=== PATIENT | male | born 1955 | race Caucasian/White ===

== ENCOUNTER 2020-01-05 08:14 | Inpatient (IN) | payer OTHER ==
[2020-01-04 16:54] LABS: Absolute Lymphocytes (CBC) 1.8 K/uL (0.7-4.9); Basophils % 1.3 % (0-1.3); Hematocrit 42.9 % (39.6-49.0); Lymphocytes % 23.9 % (15.3-44.8); MPV 7.8 fL (7.6-11.3); RBC Red Blood Cell Count 4.73 M/uL (4.33-5.43)
--- NOTE | 2020-01-04 17:07 | RAD REPORT ---
EXAM DESCRIPTION: Lulu Quintanilla (2 Views)01/04/2020 4:35 pm CLINICAL HISTORY: Preop gallbladder surgery/hypertension COMPARISON: 2010 FINDINGS: The lungs appear clear of acute infiltrate. The heart is normal size IMPRESSION: No acute abnormalities displayed
[2020-01-04 17:10] LABS: Albumin 3.2 g/dL (3.4-5.0); Bilirubin Direct 0.1 mg/dL (0-0.2); Bilirubin Total 0.3 mg/dL (0.2-1.0); Potassium 3.7 mmol/L (3.5-5.1); Protein, Total 7.1 g/dL (6.4-8.2)
--- NOTE | 2020-01-05 07:46 | EKG ---
Test Date: 2020-01-04 Test Time: 16:20:52 Tariff Clerk: SRIDHAR MEASUREMENT RESULTS: Intervals: Rate: 53 VA: 158 QRSD: 100 QT: 478 QTc: 448 [place]: P: 58 VA: 158 QRS: 14 T: 26 INTERPRETIVE STATEMENTS: Sinus bradycardia Nonspecific ST abnormality Abnormal ECG Compared to ECG 10/06/2010 23:40:09 ST (T wave) deviation now present Sinus rhythm no longer present Electronically Signed On 01-05-20 07:44:29 CDT by Junior Vargas
--- OUTSIDE RECORDS SUMMARY | 2020-01-05 08:48 | XMS REPORT | Clinical Summary ---
:1955 Author Organization [facility] Address [address] [place] [address] Care Team Providers Name Role Phone Vikas Walton MD Primary Care Provider [phone] Allergies Active Allergy Reactions Severity Noted Date Comments Codeine 07/16/2016 Penicillins 07/16/2016 Sulfa (Sulfonamide Antibiotics) 7 Medications Medication Sig Dispensed Refills Start Date End Date Status montelukast Take 10 mg 3 06/12/2016 Active (SINGULAIR) 10 mg by mouth tablet once daily. multivitamin Take 1 0 Active (THERAGRAN) tablet tablet by mouth daily. pantoprazole Take 40 mg 1 06/17/2018 Activ e (PROTONIX) 40 MG by mouth EC tablet daily. metoprolol Take 1 90 tablet 3 07/13/2019 Active succinate XL tablet (50 1 (TOPROL-XL) 50 mg mg total) by 24 hr mouth daily. tabletIndications: Paroxysmal atrial fibrillation (HCC) ELIQUIS 5 mg Take 1 180 tablet 3 07/13/2019 Activ e tabletIndications: tablet (5 mg Paroxysmal atrial total) by fibrillation (HCC) mouth 2 (two) times a day. fenofibrate Take 1 90 tablet 3 07/13/2019 Active (LOFIBRA) 160 MG tablet (160 1 tabletIndications: mg total) by Paroxysmal atrial mouth daily. fibrillation (HCC) MULTAQ 400 mg Take 1 180 tablet 3 07/13/2019 Acti ve tabletIndications: tablet (400 Paroxysmal atrial mg total) by fibrillation (HCC) mouth 2 (two) times a day. metoprolol TAKE 1 180 tablet 3 12/02/2017 Discont inued tartrate TABLET BY 9 (Formulary (LOPRESSOR) 100 mg MOUTH TWICE change) tablet A DAY MULTAQ 400 mg Take 1 180 tablet 3 01/13/2018 Disc ontinued tabletIndications: tablet (400 9 (Reorder) Paroxysmal atrial mg total) by fibrillation (HCC) mouth 2 (two) times a day. fenofibrate Take 1 90 tablet 3 01/13/2018 Discont inued (TRICOR) 145 MG tablet (145 9 (F ormulary tablet mg total) by change) mouth once daily. ELIQUIS 5 mg Take 1 180 tablet 3 01/13/2018 Disco ntinued tablet tablet (5 mg 9 (Reorde r) total) by mouth 2 (two) times a day. ELIQUIS 5 mg TAKE 1 180 tablet 2 04/28/2018 Disco ntinued tablet TABLET (5 MG 9 (Reorde r) TOTAL) BY MOUTH 2 (TWO) TIMES A DAY. metoprolol Take 1 90 tablet 3 07/21/2018 Disconti nued succinate XL tablet (100 9 (Reor yeyo) (TOPROL-XL) 100 mg mg total) by 24 hr tablet mouth daily. fenofibrate Take 1 90 tablet 3 10/22/2018 Discont inued (LOFIBRA) 160 MG tablet (160 9 ( Reorder) tablet mg total) by mouth daily. MULTAQ 400 mg TAKE 1 180 tablet 0 12/04/2018 Disc ontinued tabletIndications: TABLET BY 9 ( Formulary Paroxysmal atrial MOUTH TWICE change) fibrillation (HCC) A DAY ELIQUIS 5 mg TAKE 1 180 tablet 2 01/15/2019 Disco ntinued tablet TABLET (5 MG 9 (Formul roxanna TOTAL) BY change) MOUTH 2 (TWO) TIMES A DAY. ELIQUIS 5 mg Take 1 180 tablet 3 01/19/2019 Disco ntinued tablet tablet (5 mg 9 (Reorde r) total) by mouth 2 (two) times a day. fenofibrate Take 1 90 tablet 3 01/19/2019 Discont inued (LOFIBRA) 160 MG tablet (160 9 ( Reorder) tablet mg total) by mouth daily. metoprolol Take 1 90 tablet 3 01/19/2019 Disconti nued succinate XL tablet (100 9 (Reor yeyo) (TOPROL-XL) 100 mg mg total) by 24 hr tablet mouth daily. MULTAQ 400 mg Take 1 180 tablet 3 01/19/2019 Disc ontinued tabletIndications: tablet (400 9 (Reorder) Paroxysmal atrial mg total) by fibrillation (HCC) mouth 2 (two) times a day. MULTAQ 400 mg Take 1 180 tablet 3 01/19/2019 Disc ontinued tabletIndications: tablet (400 0 (Reorder) Paroxysmal atrial mg total) by fibrillation (HCC) mouth 2 (two) times a day. metoprolol Take 1 90 tablet 3 01/19/2019 Disconti nued succinate XL tablet (100 0 (TOPROL-XL) 100 mg mg total) by 24 hr mouth daily. tabletIndications: Paroxysmal atrial fibrillation (HCC) ELIQUIS 5 mg Take 1 180 tablet 3 01/19/2019 Disco ntinued tabletIndications: tablet (5 mg 0 (Reorder) Paroxysmal atrial total) by fibrillation (HCC) mouth 2 (two) times a day. fenofibrate Take 1 90 tablet 3 01/19/2019 Discont inued (LOFIBRA) 160 MG tablet (160 0 ( Reorder) tabletIndications: mg total) by Paroxysmal atrial mouth daily. fibrillation (HCC) Active Problems Problem Noted Date Essential hypertension 07/13/2019 Coronary artery disease involving [place] coronary yue ry of [place] heart 06/30/2018 without angina pectoris Chest pain 06/30/2018 Atrial fibrillation 07/15/2017 Paroxysmal atrial fibrillation 07/16/2016 Hyperlipidemia 07/16/2016 Encounters Date Type Specialty Care Team Description 12/31/2019 Travel 07/13/2019 Office Visit Cardiology Wilder Doherty MD Atrial f ibrillation, unspecified type (HCC) (Primary Dx); Paroxysmal atri al fibrillation (HCC); Essential hyper tension 01/19/2019 Office Visit Cardiology Wilder Doherty MD Paroxysm al atrial fibrillation (H CC) 01/15/2019 Refill Cardiovascular Wilder Doherty MD after 01/04/2019 Social History Tobacco Use Types Packs/Day Years Used Date Never Smoker Smokeless Tobacco: Never Used Alcohol Use Drinks/Week oz/Week Comments No Sex Assigned at Date Recorded Not on file Job Start Date Occupation Industry Not on file Not on file Not on file Travel History Travel Start Travel End No recent travel history available. COVID-19 Exposure Response Date Recorded In the last month, have you been in contact with No / Unsure 12/31/2019 12:50 PM CDT someone who was confirmed or suspected to have Coronavirus / COVID-19? Last Filed Vital Signs Vital Sign Reading Time Taken Comments Blood Pressure 117/71 07/13/2019 11:09 AM BODY MECHANIC Pulse 63 07/13/2019 11:09 AM BODY MECHANIC Temperature - - Respiratory Rate - - Oxygen Saturation - - Inhaled Oxygen Concentration - - Weight 89.4 kg (197 lb) 07/13/2019 11:09 AM BODY MECHANIC Height 170.2 cm (5' 7") 07/13/2019 11:09 AM BODY MECHANIC Body Mass Index 30.85 07/13/2019 11:09 AM BODY MECHANIC Plan of Treatment Date Type Specialty Care Team Description 01/18/2020 Office Visit Cardiology Wilder Doherty MD [address] [facility] [address] [place], [place] [address] [phone] Health Maintenance Due Date Last Done Comments COLONOSCOPY SCREENING 2007 SHINGLES VACCINES (#1) 2007 INFLUENZA VACCINE 01/22/2020 Procedures Procedure Name Priority Date/Time Associated Diagnosis Comme nts ECG 12-LEAD Routine 07/13/2019 11:16 AM Atrial fibrillation, Results for this BODY MECHANIC unspecified type (HCC) proce dure are in the results section. after 01/04/2019 Results ECG 12 lead (07/13/2019 11:16 AM BODY MECHANIC) Pathologist Sig nature Ventricular rate 63 [facility]rial rate 63 [facility] TX interval 148 [facility] QRSD interval 92 [facility] QT interval 448 [facility] QTC interval 458 [facility] P axis 1 44 [facility] QRS axis 1 47 [facility] T wave axis 32 [facility] EKG impression Normal sinus [facility] rhythm-Normal ECG-In automated comparison with ECG of 30-JUN-2018 14:53,-No significant change was found- Specimen Narrative Performed At This result has an attachment that is no t available. 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
[2020-01-05] MEDS ORDERED: CEFOXITIN/SWI 1gm 1 GM/10 ML SYR ONE (08:49)
[2020-01-05] MEDS: Ringers Lactate 1,000 ML IV ONE (08:53)
[2020-01-05] MEDS ORDERED: propofoL 200 MG/20 ML VIAL IV ONE (11:20)
[2020-01-05] MEDS ORDERED: FENTANYL CITR 100 MCG/2 ML ONE (11:21)
[2020-01-05] MEDS ORDERED: MIDAZOLAM HCL 2 MG/2 ML INJ ONE (11:21)
[2020-01-05] MEDS ORDERED: LIDOCAINE 2% MPF 5 ML VIAL ONE (11:21)
[2020-01-05] MEDS ORDERED: KETOROLAC 30 MG/ML INJ ONE (11:21)
[2020-01-05] MEDS ORDERED: dexAMETHasone 10 MG/ML VIAL ONE (11:21)
[2020-01-05] MEDS ORDERED: ROCURONIUM 50 MG/5 ML VIAL IV ONE (11:22)
[2020-01-05] MEDS ORDERED: ONDANSETRON 4 MG/2 ML VIAL ONE (11:23)
[2020-01-05] MEDS ORDERED: Ringers Lactate 1,000 ML IV ONE ×2 (12:40→12:42)
[2020-01-05] MEDS ORDERED: TRAMADOL 37.5mg/APAP 325mg PER TAB PO PRN (12:54)
[2020-01-05] MEDS ORDERED: ONDANSETRON 4 MG/2 ML VIAL IV PRN (12:54)
[2020-01-05] MEDS ORDERED: MEPERIDINE HCL 50 MG/ML IV PRN (12:54)
[2020-01-05] MEDS ORDERED: SODIUM CHLORIDE 0.9% 10ML INJ IV PRN (12:54)
[2020-01-05] MEDS ORDERED: GLYCOPYRROLATE 0.2 MG/ML SYR ONE (12:55)
[2020-01-05] MEDS ORDERED: NEOSTIGMINE 1 MG/ML -5 ML ONE (12:56)
[2020-01-05] MEDS ORDERED: PROMETHAZINE INJ 25 MG/ML AMP IV PRN (13:00)
--- NOTE | 2020-01-05 13:09 | P.BOP ---
Preoperative diagnosis: acute cholecystitis, symptomatic cholelithiasis, Afib, COPD Postoperative diagnosis: Purulent acute cholecystitis Primary procedure: Laparoscopic cholecystectomy Legal Consultant: Ericka Haney ([place]) Estimated blood loss: <20cc Specimen: GB, culture Findings: pus in gallblader with inflammation and adhesions Anesthesia: General Complications: None Drain(s): ELIZABETH drain Transferred to: Recovery Room Condition: Fair
[2020-01-05] MEDS ORDERED: HYDROMORPHONE HCL 1 MG/ML INJ ONE (13:31)
[2020-01-05] MEDS ORDERED: MEPERIDINE HCL 25 MG/ML SYR ONE (13:32)
[2020-01-05 14:49] VITALS: BMI 29.7
[2020-01-05] MEDS: NA CHLORIDE 0.9% 1,000 ML IV SCH ×2 (15:15→23:00)
[2020-01-05] MEDS: METRONIDAZOLE 500mg IVPB 500 MG/100 ML BAG IV SCH (17:14)
[2020-01-05] MEDS: DRONEDARONE 400 MG TAB PO SCH (20:42)
--- NOTE | 2020-01-05 23:21 | OP ---
Date of Procedure: 01/05/2020 Surgeon: Buzz Caicedo MD Monitoring Analyst: Ericka Wells. Preoperative Diagnoses: Acute cholecystitis, symptomatic cholelithiasis, atrial fibrillation, chroni c obstructive pulmonary disease, intractable right upper quadrant abdominal pain. Postoperative Diagnosis: Purulent cholecystitis. Procedure Performed: Laparoscopic cholecystectomy. Specimen: Gallbladder and culture of the pus. Findings: The patient has a distended gallbladder, thickening wall and when the area have to be defl ated with the Endo needle, we found a large amount of pus. There were some omental adhesions to the gallbladder. Anesthesia: General plus local. Complications: None. Drains: ELIZABETH #10. Indications: This is the case of a 64-year-old patient who comes to us with recurrent epigastric rig ht upper quadrant pain radiating to the back. The patient has been having attacks on and off. He agosto s history of COPD and also atrial fibrillation. He recently saw his utility worker. He has been tryin g to keep his diet. He did not get better. He was advised to have the gallbladder removed since he is having several attacks a week. Today, he comes for laparoscopy, possible open cholecystectomy. B enefits, alternatives, and risks were fully explained in the past, which include, but not limited to infection, bleeding, damage to adjacent structures, anesthesia complication, choledocholithiasis, thien e leak, pancreatitis, CA, and even . He also understands this may not relieve symptoms. He faviola ht need more than one surgical intervention. He understood, signed a consent. Description Of Procedure: Patient was brought to the operating room, placed in supine position. Ane sthesia was done without complication. Abdominal area was prepped and draped in sterile fashion. Ma rcaine 0.5% was injected for local anesthetic, followed by sharp incision of the skin in the infraumb ilical region. Incision was carried down to fascia, which was opened under direct vision. Peritoneu m was encountered, opened under direct vision. Vicryl #1 was placed inside the fascia. Taylor troca r was carefully introduced. No bleeding was obtained. When we looked at the right upper quadrant, we had some omental adhesions going to the area. We put 5 mm trocar, three of them, on the right upper quadrant under direct visua lization. We took the adhesions down, then we noticed a very distended thickening gallbladder, unabl e to be grasped, so we have to put an Endo needle over the area under direct visualization and when w e aspirated reema pus, a large amount of pus was coming from the area. We understand his condition a nd a little bit better. So, once we thinned that, we proceeded to put a grasper in the fundus of the gallbladder and another grasper in the infundibulum retracting the gallbladder in the inferolateral fashion exposing the triangle of Calot, obtaining critical view. Carefully, the adhesions were remov ed down until we identified the infundibulum. We have already the trocar retracted in the inferolateral fashion and then after that, we identified the cystic duct and cystic artery. They we re clearly circumferentially, and the connection between those and the gallbladder were cl early identified. I proceeded to ligate those by using at least 3 clips proximal, 1 clip distal, lig ation in middle, same was done with the cystic artery. No bile leak. No bleeding. The gallbladder was removed from liver using Bovie cauterizer and removed from abdominal cavity using EndoCatch through the umbilical incision. I decided to leave a J P drain in that area. It has a significant amount of inflammation and also purulent discharge over t he area, so I left a ELIZABETH drain coming through one of the trocar sites securing that in place with 3-0 nylon. We checked the area once again. Gallbladder fossa was with no bile leak. No bleeding and cl ips were intact. At that moment, I proceeded to remove the trocars under direct vision. Deflated th e pneumoperitoneum, closed the fascia with #1 Vicryl, irrigated subcutaneous tissue, closed that with 3-0 chromic and then the skin with staple. Sponge count and instrument counts were correct. Patien t tolerated the procedure well. Patient was sent to the recovery in stable condition. This patient has too much disease in that area. He has multiple comorbidities including heart disease, COPD, and also a purulent discharge from the gallbladder. We preferred this patient to stay with us. We need IV antibiotics, bowel rest, a ELIZABETH drain, cardiac monitoring. We are going to obtain a hospice consult to help us with medical problems in this patient. This patient's utility worker is in [place], Dr. Traci cuello. If we encounter some difficult time here with the heart, we are going to consult then Dr. Hallie razo for him to communicate properly to Dr. Doherty. The patient understood that in advance. THONG/SEAMUS Voice ID: [id number] Report ID: [id number]
[2020-01-06] MEDS: METRONIDAZOLE 500mg IVPB 500 MG/100 ML BAG IV SCH ×2 (00:15→05:10)
[2020-01-06] MEDS: NA CHLORIDE 0.9% 1,000 ML IV SCH ×5 (02:24→22:48)
[2020-01-06 06:26] LABS: Basophils % 0.2 % (0-1.3); Hematocrit 38.5 % (39.6-49.0); Lymphocytes % 5.7 % (15.3-44.8); MPV 7.7 fL (7.6-11.3); RBC Red Blood Cell Count 4.25 M/uL (4.33-5.43)
[2020-01-06] MEDS ORDERED: PANTOPRAZOLE 40 MG INJ IVP SCH (09:00)
[2020-01-06] MEDS: DRONEDARONE 400 MG TAB PO SCH ×2 (09:13→21:59)
[2020-01-06] MEDS: METOPROLOL TAR 50 MG TAB PO SCH (15:17)
[2020-01-06] MEDS: APIXABAN 5 MG TABLET PO SCH ×2 (15:18→22:00)
--- NOTE | 2020-01-06 18:54 | P.CNS ---
Date of Consult: 01/06/20 Reason for Consult: Medical management Requesting Physician: Buzz Caicedo Chief Complaint: Acute cholecystitis History of Present Illness: 64-year-old male who was admitted for acute cholecystitis and is now postoperative. Hospitalist were consulted for resumption of home medications due to patient's history of atrial fibrillation and COPD. Home medications list reviewed: Yes - Past Medical/Surgical History Diabetic: No -: Hypertension -: afib -: jaw surgery -: sinus surgery -: nose surgery - Family History Father Medical History: Heart disease Mother History Unknown: Yes Family History: Reviewed- Non-Contributory - Social History Smoking Status: Never smoker Alcohol use: No CD- Drugs: No Caffeine use: Yes Place of Residence: Home <Zacarias Arteaga - Last Filed: 01/06/20 18:54> - Past Medical/Surgical History -: Atrial fibrillation -: COPD -: GERD -: Hypertension Psychosocial/ Personal History: Patient lives at home <Saqib Oneal - Last Filed: 01/06/20 19:03> Allergies codeine Allergy (Verified 01/04/20 15:56) Itching/Hives/Rash Penicillins Allergy (Verified 01/04/20 15:56) Itching/Hives/Rash Sulfa (Sulfonamide Antibiotics) Allergy (Verified 01/04/20 15:56) Itching/Hives/Rash Home Medications: Apixaban [Eliquis] 5 mg PO BID 01/04/20 Dicyclomine [Bentyl] 10 mg PO BID 01/04/20 Dronedarone [Multaq] 400 mg PO BID 01/04/20 Fenofibrate [Tricor] 160 mg PO DAILY 01/04/20 Metoprolol Tartrate [Lopressor] 50 mg PO DAILY 01/04/20 Montelukast [Singulair] 10 mg PO DAILY 01/04/20 Pantoprazole Sodium [Protonix] 40 mg PO DAILY 01/04/20 Review of Systems General: Unremarkable Eyes: Unremarkable ENT: Unremarkable Respiratory: Unremarkable Cardiovascular: Unremarkable Gastrointestinal: Unremarkable Genitourinary: Unremarkable Musculoskeletal: Unremarkable Integumentary: Unremarkable Neurological: Unremarkable <Zacarias Arteaga - Last Filed: 01/06/20 18:54> Physical Examination Temp Pulse Resp BP Pulse Ox 97.2 F 88 20 125/80 96 01/06/20 16:00 01/06/20 16:00 01/06/20 16:00 01/06/20 16:00 01/06/20 16:00 General: Alert, In no apparent distress, Oriented x3 HEENT: Atraumatic, Normocephalic, PERRLA Neck: Supple, Other (Trachea midline) Respiratory: Clear to auscultation bilaterally, Normal air movement Cardiovascular: No edema, Normal pulses, Regular rate/rhythm Capillary refill: <2 Seconds Gastrointestinal: Normal bowel sounds, Soft and benign, Non-distended, Tenderness (Mild tenderness with palpation that trocar sites) Musculoskeletal: No clubbing, No swelling, No contractures Integumentary: No rashes, No breakdown, No significant lesion Neurological: Normal gait, Normal speech, Normal strength at 5/5 x4 extr, Normal tone Laboratory Data (last 24 hrs) 01/06/20 05:38: Sodium 140, Potassium 4.0, BUN 12, Creatinine 0.90, Glucose 117 H 01/06/20 05:38: WBC 17.0 H D, Hgb 13.2 L, Hct 38.5 L, Plt Count 409 H <Zacarias Arteaga - Last Filed: 01/06/20 18:54> Temp Pulse Resp BP Pulse Ox 97.2 F 88 20 125/80 96 01/06/20 16:00 01/06/20 16:00 01/06/20 16:00 01/06/20 16:00 01/06/20 16:00 Laboratory Data (last 24 hrs) 01/06/20 05:38: Sodium 140, Potassium 4.0, BUN 12, Creatinine 0.90, Glucose 117 H 01/06/20 05:38: WBC 17.0 H D, Hgb 13.2 L, Hct 38.5 L, Plt Count 409 H <Saqib Oneal - Last Filed: 01/06/20 19:03> - Problems (1) Chronic atrial fibrillation Current Visit: Yes Status: Chronic (2) COPD (chronic obstructive pulmonary disease) Current Visit: Yes Status: Chronic (3) Essential hypertension Current Visit: Yes Status: Chronic Conclusions/Impression: Impression: Acute cholecystectomy now postop: Chronic atrial fibrillation with rate controlled: Essential hypertension: History of COPD currently not requiring O2 support: Plan: Acute cholecystectomy now postop: Patient is doing well postoperatively. This is managed by surgery. His pain is controlled and he is ambulating hallways. Chronic atrial fibrillation with rate controlled: Will resume home medication of Eliquis 5 mg b.i.d.. Currently patient is rate is controlled and telemetry has not shown abnormal rhythms. Essential hypertension: Will resume all medication of metoprolol tartrate 50 mg daily. Blood pressure controlled. History of COPD currently not requiring O2 support: Patient has a history of COPD but currently does not require O2 support and patient does not use home oxygen either. Will monitor O2 saturations. Time Spent Managing Pts care (In Minutes): 45 <Zacarias Arteaga - Last Filed: 01/06/20 18:54> Conclusions/Impression: Case discussed with PA. Agree with evaluation, assessment and plan of care. C ase also discuss with surgery. Restart home medication. Restart diet. Surgery plans to discharge patient tomorrow. May continue with home medications. I will turn the service over to the hospitalist team tomorrow. I will go over the plan of care with him. <Saqib Oneal - Last Filed: 01/06/20 19:03>
[2020-01-07] MEDS: NA CHLORIDE 0.9% 1,000 ML IV SCH ×2 (05:00→11:08)
[2020-01-07] MEDS ORDERED: PANTOPRAZOLE 40MG TABLET PO SCH (09:00)
[2020-01-07] MEDS ORDERED: FENOFIBRATE 160 MG TAB PO SCH (09:00)
[2020-01-07] MEDS: METOPROLOL TAR 50 MG TAB PO SCH (09:00)
[2020-01-07] MEDS ORDERED: MONTELUKAST 10 MG TAB PO SCH (09:00)
[2020-01-07 09:20] LABS: Absolute Lymphocytes (CBC) 1.5 K/uL (0.7-4.9); Basophils % 0.5 % (0-1.3); Hematocrit 38.1 % (39.6-49.0); Lymphocytes % 14.6 % (15.3-44.8); MPV 7.9 fL (7.6-11.3)
[2020-01-07 09:39] LABS: ALT/SGPT 27 U/L (12-78); AST/SGOT 33 U/L (15-37); Albumin 2.6 g/dL (3.4-5.0); Alkaline Phosphatase 43 U/L (45-117); BUN Blood Urea Nitrogen 11 mg/dL (7-18); Bicarbonate 24 mmol/L (21-32); Bilirubin Total 0.5 mg/dL (0.2-1.0); Glucose Level 140 mg/dL (74-106); Potassium 3.3 mmol/L (3.5-5.1); Protein, Total 5.7 g/dL (6.4-8.2); Sodium Level 140 mmol/L (136-145)
--- NOTE | 2020-01-07 10:37 | P.PN ---
Subjective Date of Service: 01/07/20 Chief Complaint: Acute cholecystitis Subjective: Improving, Doing well <Zacarias Arteaga - Last Filed: 01/07/20 10:38> Date of Service: 01/07/20 <Apolinar Dixon - Last Filed: 01/07/20 14:03> Review of Systems General: Unremarkable Eyes: Unremarkable ENT: Unremarkable Respiratory: Unremarkable Cardiovascular: Unremarkable Gastrointestinal: Unremarkable Genitourinary: Unremarkable Musculoskeletal: Unremarkable Neurological: Unremarkable <Zacarias Arteaga - Last Filed: 01/07/20 10:38> Physical Examination - Vital Signs Temperature: 97.0 F Blood Pressure: 110/55 Pulse: 54 Respirations: 15 Pulse Ox (%): 96 - Physical Exam General: Alert, In no apparent distress, Oriented x3 HEENT: Atraumatic, Normocephalic, PERRLA Neck: Supple Respiratory: Clear to auscultation bilaterally, Normal air movement Cardiovascular: No edema, Normal pulses, Regular rate/rhythm, Normal S1 S2 Capillary refill: <2 Seconds Gastrointestinal: Normal bowel sounds, Soft and benign, Non-distended, No tenderness, Other (Tolerating p.o. diet) Musculoskeletal: No clubbing, No swelling, No contractures Integumentary: No rashes, No breakdown, No significant lesion, No tenderness/swelling Neurological: Normal gait, Normal speech, Normal strength at 5/5 x4 extr, Normal tone Other Physical/Emotional Findings: Patient lives at home - Studies Laboratory Data (last 24 hrs) 01/07/20 08:49: Sodium 140, Potassium 3.3 L, BUN 11, Creatinine 0.84, Glucose 1 40 H, Total Bilirubin 0.5, AST 33, ALT 27, Alkaline Phosphatase 43 L 01/07/20 08:49: WBC 10.5 D, Hgb 12.8 L, Hct 38.1 L, Plt Count 373 Microbiology Data (last 24 hrs): 01/05/20 12:49 Body Fluid - Other Gram Stain - Final 01/05/20 12:49 Wound - Other Gram Stain - Final <Zacarias Arteaga - Last Filed: 01/07/20 10:38> - Studies Laboratory Data (last 24 hrs) 01/07/20 08:49: Sodium 140, Potassium 3.3 L, BUN 11, Creatinine 0.84, Glucose 140 H, Total Bilirubin 0.5, AST 33, ALT 27, Alkaline Phosphatase 43 L 01/07/20 08:49: WBC 10.5 D, Hgb 12.8 L, Hct 38.1 L, Plt Count 373 Microbiology Data (last 24 hrs): 01/05/20 12:49 Wound - Other Gram Stain - Final 01/05/20 12:49 Body Fluid - Other Gram Stain - Final <Apolinar Dixon - Last Filed: 01/07/20 14:03> Assessment And Plan - Current Problems (Diagnosis) (1) Chronic atrial fibrillation Onset Date: Unknown Status: Chronic (2) COPD (chronic obstructive pulmonary disease) Status: Chronic (3) Essential hypertension Status: Chronic - Plan Impression: Acute cholecystectomy now postop: Chronic atrial fibrillation with rate controlled: Essential hypertension: History of COPD currently not requiring O2 support: Plan: Acute cholecystectomy now postop: POD#2. Patient continue doing well postoperatively. He is ambulating hallways. This is managed by surgery. Requiring minimal pain medication at this time. Likely discharge today by surgery. Chronic atrial fibrillation with rate controlled: Continue home medication Eliquis 5 mg b.i.d.. Currently patient is rate is controlled and telemetry has not shown abnormal rhythms. Essential hypertension: Continue metoprolol tartrate 50 mg daily. Blood pressure controlled. History of COPD currently not requiring O2 support: Patient has a history of COPD but currently does not require O2 support and patient does not use home oxygen either. Will monitor O2 saturations. Discharge Plan: Home Plan to discharge in: Unknown - Code Status/Comfort Care Code Status Assessed: Yes Time Spent Managing PTS Care (In Minutes): 40 <Zacarias Arteaga - Last Filed: 01/07/20 10:38>
[2020-01-07] MEDS: APIXABAN 5 MG TABLET PO SCH (11:05)
[2020-01-07] MEDS: DRONEDARONE 400 MG TAB PO SCH (11:06)
--- NOTE | 2020-01-07 11:57 | P.DS ---
Admission Date: 01/05/20 Discharge Date: 01/07/20 Disposition: ROUTINE DISCHARGE Discharge Condition: GOOD Reason for Admission: Acute cholecystitis - Problems (1) Suppurative cholecystitis Current Visit: Yes Status: Acute Hospital Course: unremarkable Vital Signs/Physical Exam: Temp Pulse Resp BP Pulse Ox 97.0 F 54 15 110/55 L 96 01/07/20 10:39 01/07/20 10:39 01/07/20 10:39 01/07/20 10:39 01/07/20 10:39 General: Alert, In no apparent distress, Oriented x3, Cooperative HEENT: PERRLA, EOMI Neck: Supple Respiratory: Clear to auscultation bilaterally Cardiovascular: No edema Gastrointestinal: Soft and benign, Other (ELIZABETH clear) Musculoskeletal: No erythema, No tenderness Integumentary: No erythema, No warmth, No cyanosis Neurological: Normal speech Other Physical/Emotional Findings: Patient lives at home Laboratory Data at Discharge: WBC 10.5 K/uL (4.3-10.9) D 01/07/20 08:49 Hgb 12.8 g/dL (13.6-17.9) L 01/07/20 08:49 Hct 38.1 % (39.6-49.0) L 01/07/20 08:49 Plt Count 373 K/uL (152-406) 01/07/20 08:49 Sodium 140 mmol/L (136-145) 01/07/20 08:49 Potassium 3.3 mmol/L (3.5-5.1) L 01/07/20 08:49 BUN 11 mg/dL (7-18) 01/07/20 08:49 Creatinine 0.84 mg/dL (0.55-1.3) 01/07/20 08:49 Glucose 140 mg/dL (74-106) H 01/07/20 08:49 Total Bilirubin 0.5 mg/dL (0.2-1.0) 01/07/20 08:49 AST 33 U/L (15-37) 01/07/20 08:49 ALT 27 U/L (12-78) 01/07/20 08:49 Alkaline Phosphatase 43 U/L (45-117) L 01/07/20 08:49 Amylase 101 U/L (25-115) 01/04/20 16:18 Lipase 343 U/L (73-393) 01/04/20 16:18 Home Medications: Apixaban [Eliquis] 5 mg PO BID 01/04/20 Dicyclomine [Bentyl] 10 mg PO BID 01/04/20 Dronedarone [Multaq] 400 mg PO BID 01/04/20 Fenofibrate [Tricor] 160 mg PO DAILY 01/04/20 Metoprolol Tartrate [Lopressor] 50 mg PO DAILY 01/04/20 Montelukast [Singulair] 10 mg PO DAILY 01/04/20 Pantoprazole Sodium [Protonix] 40 mg PO DAILY 01/04/20 Ciprofloxacin HCl [Cipro 500 MG Tablet] 500 mg PO BID #10 tab 01/07/20 Tramadol HCl/Acetaminophen [Ultracet Tablet] 1 each PO Q4H #20 tablet 01/07/20 New Medications: Ciprofloxacin HCl [Cipro 500 MG Tablet] 500 mg PO BID #10 tab Tramadol HCl/Acetaminophen [Ultracet Tablet] 1 each PO Q4H #20 tablet Patient Discharge Instructions: Record ELIZABETH output q24h Diet: AHA Activity: No lifting more than 10 lbs Followup: Buzz Caicedo MD [ACTIVE - CAN ADMIT] - 1 Week
[2020-01-07 13:35] VITALS: BP 100/63; TEMP 97.4
[2020-01-07 16:17] VITALS: O2SAT 95
== END 2020-01-07 13:28 | disposition home or self-care (01) | DRG 418 ==
LOC: OR 08:14 → 2ND 14:03
PROVIDERS: ADMIT Surgery; ATTEND Surgery
PROC: 0W9G40Z Drainage of Peritoneal Cavity with Drainage Device, Percutaneous Endoscopic Approach (ICD-10-PCS; 2020-01-05)
PROC: 0FT44ZZ Resection of Gallbladder, Percutaneous Endoscopic Approach (ICD-10-PCS; principal; 2020-01-05 09:45)
DX: K80.00 Calculus of gallbladder with acute cholecystitis without obstruction (principal); I48.20 Chronic atrial fibrillation, unspecified; I10 Essential (primary) hypertension; J44.9 Chronic obstructive pulmonary disease, unspecified; K21.9 Gastro-esophageal reflux disease without esophagitis; Z88.5 Allergy status to narcotic agent; Z88.0 Allergy status to penicillin; Z79.01 Long term (current) use of anticoagulants; Z79.899 Other long term (current) drug therapy; Z88.1 Allergy status to other antibiotic agents
CPT/HCPCS: 36415; 71046; 80048; 80053; 80076; 82150; 83690; 85025; 87070; 87075; 87205; 88304; 93005; C9113; J1100; J1170; J2175; J2250; J2405; J2704; J2710; J3010; J7030; J7120; U0002